=== PATIENT | male | born 1980 | race Caucasian/White ===

== ENCOUNTER 2022-09-28 13:32 | Outpatient (CLI) | payer OTHER, SELFPAY | END 2022-09-28 13:33 | disposition home or self-care (01) | PROVIDERS: PCP Family Medicine; Visit Provider Family Medicine | DX: Z00.00 Encounter for general adult medical examination without abnormal findings (principal); K21.9 Gastro-esophageal reflux disease without esophagitis; Z13.6 Encounter for screening for cardiovascular disorders | CPT/HCPCS: 80048; 80061; 85025 ==

== ENCOUNTER 2024-09-27 17:43 | Emergency (ER) | payer BC, SELFPAY ==
--- OUTSIDE RECORDS SUMMARY | 2024-09-27 17:45 | XMS_ITS | Clinical Summary ---
Author Organization [facility] [facility] [employer] [facility] Address [address] [place] [id number] Care Team Providers Care Logistics Operations Director Name Role Phone Ti Jimenez MD Primary Care Provider [phone] Allergies Active Allergy Reactions Criticality Noted Date Comments Tetracycline Hives 02/06/2016 Medications No known medications Active Problems No known active problems Immunizations Immunization Administration Dates Next Due COVID-19 VACCINE SPIKEVAX (M ODERNA 50MCG/0.5ML) 12YO+ PFS 12/02/2023 INFLUENZA, IIV3 PF (AGE >= 6 MO) 01/29/2015 Influenza A (H1N1), Inactivated 03/22/2009 Influenza Virus, Unspecified 11/28/2020,01/30/20 15 Influenza, CCIIV3 (Age >=6 MO) (Egg Free) 2023 Influenza, IIV3 (Age >=3 years) 12/28/2013,02/28 Influenza, IIV4 01/27/2017,12/29/2012,03/22/2009 Influenza, IIV4 (=>6mos) MDV 12/04/2019,11/29/19 19,01/02/2016 Influenza, Injectable, Mdck, Quadrivalent, W/preservative 11/24/2022,11/27/2021,11/28/2020 Tdap 12/23/2020,10/17/2015,08/20/2009 Family History Medical History Relation Name Comments Cancer-breast Maternal Grandmother Cancer-prostate Maternal Uncle 1 Stomach cancer Maternal Uncle 2 Cancer-breast Mother Skin cancer Mother Lung cancer Paternal Grandfather Cancer-colon No Family History Relation Name Status Comments Maternal Grandmother Maternal Uncle 1 Alive Maternal Uncle 2 Alive Mother Paternal Grandfather Social History Tobacco Use Types Packs/Day Years Used Date Smoking Tobacco: Never Smokeless Tobacco: Never Tobacco Cessation:Counseling Given: Yes Alcohol Use Standard Drinks/Week Comments Yes 0 (1 standard drink = 0.6 oz pur e alcohol) PHQ-2 Answer Date Recorded PHQ-2 TOTAL SCORE 0 04/21/2024 Social Connections Answer Date Recorded Do you often feel lonely or isolated from those around you? 0 04/20/2024 Financial Resource Strain Answer Date R ecorded Difficulty of Paying Living Expenses 3 04/20/2024 Difficulty of Paying Living Expenses Not on file 04/20/2024 Food Insecurity Answer Date Recorded Do you worry your food will run out before you are able to buy more? 1 04/20/2024 Transportation Needs Answer Date Record ed Does lack of transportation keep you from medica l appointments? 1 04/20/2024 Does lack of transportation keep you from work, meetings or getting things that you need? 1 04/20/2024 Housing Stability Answer Date Recorded What is your housing situation today? 1 04/20/2024 Utilities Answer Date Recorded Do you have trouble paying f or utilities (for example, heat, electricity, water, phone)? 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 [employer] Gender Identity Not on file Sexual Orientation Not on file Obstetrics History Last Filed Vital Signs Vital Sign Reading Time Taken Comments Blood Pressure 118/68 04/21/2024 2:27 PM [employer] Pulse 62 04/21/2024 2:27 PM [employer] Temperature 37.2 C (98.9 F) 04/18/2024 3:44 PM [employer] Respiratory Rate 16 04/18/2024 3:44 PM [employer]PER[employer] Oxygen Saturation 100% 04/21/2024 2:27 PM [employer] Inhaled Oxygen Concentration - - Weight 79.1 kg (174 lb 6.4 oz) 04/21/2024 2:27 P M [employer] Height 185 cm (6' 0.84) 04/21/2024 2:27 PM [employer] Body Mass Index 23.11 04/21/2024 2:27 PM [employer] Plan of Treatment Health Maintenance Due Date Last Done Comments Hepatitis B series for 19+ (1 of 3 - 19+ 3-dose series) 01/19/2000 Influenza Vaccine (#1) 2024 4, 11/24/2022, 11/27/2021, Additional history exists BMI (ht and wt on same day) for age 18+ 04/21/2025 04/21/2024, 05/27/2016, 02/06/2016 Depression screening for age 12+ 04/21/2025 04/21/2024 Lipids for age 35-44 04/21/2029 04/21/2024 Tetanus booster 12/23/2030 12/23/2020, 10/06, 08/20/2009 COVID-19 vaccine series Completed 12/02/19 24, 02/16/2023, 11/22/2021, Additional history exists HIV for age 15-65 Completed 04/21/2024 Hepatitis C screening for age 18-79 Completed 04/21/2024 Pneumococcal series for age 6-49 Aged Out No longer eligible based on patient's age to complete this topic Procedures Procedure Name Priority Date/Time Associated Diagnosis Comments ANTI HIV 1/2 Routine 04/21/2024 3:16 PM [employer] Screening for HIV (human immunodeficiency virus) ANTI HCV Routine 04/21/2024 3:16 PM [employer] Need for hepatitis C screening test LIPID PANEL W REFLEX MEASURED LDL Routine 04/21/2024 3:16 PM [employer] Screening for lipid disorders from Last 3 Months or Most Recently Relevant to Health Maintenance Results * (ABNORMAL) LIPID PANEL W REFLEX MEASURED LDL [[id number]] (04/21/2024 3:16 PM SUPERVISOR [employer]) CHOLESTEROL, TOTAL 143 <200 mg/dL [facility] HDL CHOLESTEROL 31(L) > OR = 40 mg/dL [facility] TRIGLYCERIDES 355(H) <150 mg/dL [facility] Comment: If a non-fasting specimen was collected, consider repeat triglyceride testing on a fasting specimen if clinically indicated. Aicha et al. J. of Clin. Lipidol. 2015;9:129-169. LDL-CHOLESTEROL 69 mg/dL (calc) [facility] Comment: Reference range: <100 Desirable range <100 mg/dL for primary prevention; <70 mg/dL for patients with CHD or diabetic patients with > or = 2 CHD risk factors. LDL-C is now calculated using the Stanley calculation, which is a validated novel method providing better accuracy than the Friedewald equation in the estimation of LDL-C. Bucky PEARCE et al. SWETHA. 2013;310(19): 6656-5301 (http://Jaco Solarsi.HRBoss/faq/SFW291) CHOL/HDLC RATIO 4.6 <5.0 (calc) [facility] NON HDL CHOLESTEROL 112 <130 mg/dL (calc) [facility] Comment: For patients with diabetes plus 1 major ASCVD risk factor, treating to a non-HDL-C goal of <100 mg/dL (LDL-C of <70 mg/dL) is considered a therapeutic option. Blood BLOOD SPECIMEN / Unknown 04/21/2024 3:16 PM [employer] 04/21/2024 3:16 PM SUPERVISOR [employer] Narrative [facility] - 04/22/2024 6:53 AM SUPERVISOR [employer]VERT[employer] FASTING:NO FASTING: NO us Ti Jimenez MD CHEMISTRY Final Resu lt [employer] [facility] [address] [place] [address], [facility] [address] * ANTI HCV (04/21/2024 3:16 PM SUPERVISOR [employer]) Pathologist [facility] HEPATITIS C ANTIBODY NON-REACTI VE NON-REACT CLAUDIA [facility] Comment: HCV antibody was non-reactive. There is no laboratory evidence of HCV infection. In most cases, no further action is required. However, if recent HCV exposure is suspected, a test for HCV RNA (test code 62850) is suggested. For additional information please refer to http://Jaco Solarsi.The Butler/faq/SGX70e1 (This link is being provided for informational/ educational purposes only.) Blood BLOOD SPECIMEN / Unknown 04/21/2024 3:16 PM [employer]PER[employer] 04/21/2024 3:16 PM [employer]PER[employer] Narrative [facility] - 04/22/2024 6:59 AM SUPER[employer] FASTING:NO FASTING: NO Ti Jimenez MD SEND OUTS Final Resu lt [employer] [facility] [address] [place] [address], [facility] [address] [place] [address] * ANTI HIV 1/2 [26222.0] (04/21/2024 3:16 PM SUPER[employer]) Pathologist [facility] HIV AG/AB, 4TH GEN NON-REACT CLAUDIA NON-REACT [facility]UD[facility] Comment: HIV-1 antigen and HIV-1/HIV-2 antibodies were not detected. There is no laboratory evidence of HIV infection. PLEASE NOTE: This information has been disclosed to you from records whose confidentiality may be protected by state law. If your state requires such protection, then the state law prohibits you from making any further disclosure of the information without the specific written consent of the person to whom it pertains, or as otherwise permitted by law. A general authorization for the release of medical or other information is NOT sufficient for this purpose. For additional information please refer to http://education.BOSS Metrics.NiftyThrifty/faq/YMD907 (This link is being provided for informational/ educational purposes only.) The performance of this assay has not been clinically validated in patients less than 2 years old. Blood BLOOD SPECIMEN / Unknown 04/21/2024 3:16 PM [employer] 04/21/2024 3:16 PM SUPER[employer] Narrative [facility] - 04/22/2024 6:59 AM SUPER[employer] FASTING:NO FASTING: NO Ti Jimenez MD SEND OUTS Final Resu lt [employer] [facility] [address] [place] [address], [facility] [address] [place] [address] from Last 3 Months or Most Recently Relevant to Health Maintenance Insurance [facility] Care Teams Logistics Operations Director Relationship Specialty Start Date End Date Ti Jimenez MD [address] [place] [address] PCP - General Family Practice 04/21/24
--- OUTSIDE RECORDS SUMMARY | 2024-09-27 17:45 | XMS_ITS | Clinical Summary ---
Author Organization [facility] Address [address] [facility] [place] [address] Care Team Providers Care Mold Runner Name Role Phone Unavailable Primary Care Provider Unavailabl e Allergies Active Allergy Reactions Criticality Noted Date Comments Tetracycline Hives Low 06/27/2004 Medications NO ACTIVE MEDICATIONSIndicat ions:Sore throat (viral) Active Active Problems Problem Noted Date Diagnosed Date CARDIOVASCULAR SCREENING; LDL GOAL LESS THAN 160 01/05/2010 Foot Joint Pain- rt 08/20/2009 Melanocytic nevus 08/20/2009 Overview (12/07/2011): (Problem list name updated by automated process. Provider to review and confirm.) Exercise-induced asthma 04/27/2005 Overview (12/06/2014): Problem list name updated by automated process. Provider to review Resolved Problems Problem Noted Date Diagnosed Date Resolved Date Cough 04/03/2010 12/23/2020 Immunizations Immunization Administration Dates Next Due Influenza (H1N1) 03/22/2009 Influenza (IIV3) PF 12/28/2013,02/29/2012 Influenza (prior to 2023) 01/29/2015 Influenza Vaccine >6 months,quad, PF 11/28/2020, 01/27/2017,12/29/2012 Influenza Vaccine, 6+MO IM ( QUADRIVALENT W/PRESERVATIVES) 12/04/2019,11/28/2018,01/02/2016 TDAP (Adacel,Boostrix) 12/23/2020 TDAP Vaccine (Adacel) 10/17/2015,08/20/2009 Family History Medical History Relation Comments Lipids Father Breast Cancer Mother Cancer Mother skin cancer Relation Status Comments Father Alive Maternal Grandfather Alive Maternal Grandmother Mother Alive Paternal Grandfather Paternal Grandmother Sister Alive Social History Tobacco Use Types Packs/Day Years Used Date Smoking Tobacco: Never Smokeless Tobacco: Never Tobacco Cessation:Counseling Given: No Alcohol Use Standard Drinks/Week Comments Yes 2 (1 standard drink = 0.6 oz pur e alcohol) couple drinks a week Adolescent Education Answer Date Record ed Getting School Help Needed Not on file 12/20 Sex and Gender Information Value Date Recorded Sex Assigned at Not on file 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
[2024-09-27 17:55] VITALS: BP 122/72; PULSE 52; RESP 18; TEMP 36.3; O2SAT 100; BMI 23.5
--- NOTE | 2024-09-27 18:29 | ED.GENADULT ---
HPI - General Adult General Date Seen: 09/27/24 Chief complaint: Extremity Pain/Injury, Lower Stated complaint: swollen knee, from urgent care Time Seen by Provider: 09/27/24 18:24 History of Present Illness HPI narrative: 44 yo M referred from urgent care to ER today for evaluation of knee pain and swelling. His knee is hot, painful, red and warm to the touch urgent care provider is concerned about either gout or septic arthritis. Notes from the urgent care have conflicting descriptions of what is needed is, I see both left knee and right knee in the urgent care notes. From patient and by clinical exam the patient is having right knee redness and warmth and swelling. He is generally healthy. No history of diabetes, cancer, immunosuppression. No regular meds. He is allergic to tetracycline. He generally does not do a lot of activities that require him to crawl around on his hands and knees but he had was recently renovating his home bathroom and was doing some demolition about 2 weeks ago with a lot of crawling on his hands and knees. He also notes that he has a chronic ?callus? on the front of his right knee on the infrapatellar space with a small scab that is been there for quite some time. He is not aware of any foreign body. No known injury. Beginning yesterday he started developing discomfort and redness and pain on the skin anterior to his patella. He notes that he is able flex and extend his knee but it hurts when he flexes at the on 90? because the tissue and skin and from the patella hurts. He has not had a fever. No other swollen joints. No rashes. No concern for gonorrhea or chlamydia. He was sent to the ER today because urgent care was concerned about potential septic arthritis. However he does not have any diffuse swelling or pain in the knee. The pain is only on the anterior patella. No known knee injury. Related Data Home Medications ?Medication ?Instructions ?Recorded ?Confirmed ibuprofen PO 09/27/24 09/27/24 Allergies Allergy/AdvReac Type Severity Reaction Status Date / Time tetracycline Allergy Unknown Unknown Verified 09/27/24 16:51 [facility] Medical History GERD (gastroesophageal reflux disease) ?K21.9 - Gastro-esophageal reflux disease without esophagitis (ICD-10) Family History Uncle Prostate cancer Mother Breast cancer Skin cancer Maternal Grandmother Brain cancer Social History Narrative: ,3 kids, Teacher Non-smoker, social EtOH What is your current living situation?: I presently have a place to live Problems where you live: no known problems In the past 12 months, utilities in danger of being shut off: no In past 12 months, lack of transportation kept you from medical appts, meetings, work, or getting things needed for daily living: no In the past 12 mos, have been you worried that your food would run out before you had money to buy more?: never true In the past 12 mos, the food you bought just didn't last and you didn't have money to buy more?: never true How often does anyone, including family, friends and others, physically hurt you: never How often does anyone, including family, friends and others, insult or talk down to you: never How often does anyone, including family, friends and others, threaten you with harm: never How often does anyone, including family, friends and others, scream or curse at you: never Exam Narrative: Exam Narrative: Constitutional: Appears well-developed and well-nourished. Active. Non-toxic appearing. Polite. HENT: Head: Atraumatic. No signs of injury. Nose: No nasal discharge. Mouth/Throat: Mucous membranes are moist. No trismus. Eyes: Conjunctivae normal and EOM are normal. Pupils are equal, round, and reactive to light. Right eye exhibits no discharge. Left eye exhibits no discharge. No icterus. Neck: Normal range of motion. Neck supple. No adenopathy. No stridor. Cardiovascular: Normal rate and regular rhythm. Normal PT pulses. Normal distal cap refill Pulmonary/Chest: Effort normal. No stridor. No respiratory distress. Musculoskeletal: Normal except for his right knee- Normal range of motion. No edema. No tenderness. No deformity. Right lower extremity: No deformity. Hip nontender. Quadriceps, hamstring, femur nontender. Knee: There is a localized area of erythema and warmth on the soft tissue anterior to the patella. His roughly 4 x 6 cm in size but the edges of the erythema are somewhat indeterminate. The tissue is swollen and indurated and tender to touch but there is no palpable fluctuance. No crepitus. There is a small 1 x 2 mm scab on the skin of the patient's right proximal tibia just superior to the tibial tuberosity. No foreign body. No purulent drainage from that scab. The I do not detect any palpable or visible knee joint effusion. He has nearly full range of motion the knee from full extension to flexion just beyond 90?. No ligamentous laxity or clear evidence for ligamentous injury. Neurological: Alert. Normal strength. No cranial nerve deficit or sensory deficit. Coordination normal. GCS eye subscore is 4. GCS verbal subscore is 5. GCS motor subscore is 6. Skin: Skin is warm. No rash noted. Const: Vital Signs, click to edit/add: Vital Signs - 24 hr 09/27/24 17:55 Temperature 97.4 F L Pulse Rate [Pulse Oximeter] 52 L Respiratory Rate 18 Blood Pressure [Ri ght Upper Arm] 122/72 Pulse Oximetry 100 Oxygen Delivery Me thod Room Air Course Vital Signs Vital signs: Initial Vital Signs Temperature 97.4 F L 09/27/24 17:55 Temperature Source Temporal Artery Scan 09/27/24 17:55 Pulse Rate 52 L 09/27/24 17:55 Pulse Rhythm Regular 09/27/24 17:55 Respiratory Rate 18 09/27/24 17:55 Blood Pressure 122/72 09/27/24 17:55 Blood Pressure Mean 88 09/27/24 17:55 Blood Pressure Position Sitting 09/27/24 17:55 Pulse Oximetry 100 09/27/24 17:55 Oxygen Delivery Method Room Air 09/27/24 17:55 Vital Signs Temperature 97.4 F L 09/27/24 17:55 Pulse Rate 52 L 09/27/24 17:55 Respiratory Rate 18 09/27/24 17:55 Blood Pressure 122/72 09/27/24 17:55 Pulse Oximetry 100 09/27/24 17:55 Oxygen Delivery Method Room Air 09/27/24 17:55 Temperature 97.4 F L 09/27/24 17:55 Pulse Rate 52 L 09/27/24 17:55 Respiratory Rate 18 09/27/24 17:55 Blood Pressure 122/72 09/27/24 17:55 Pulse Oximetry 100 09/27/24 17:55 Oxygen Delivery Method Room Air 09/27/24 17:55 Medical Decision Making MDM Narrative Medical decision making narrative: Very pleasant generally healthy 44-year-old male referred from urgent care to ER today with concern for right knee pain with redness and swelling. Urgent Care was concerned about septic arthritis. On my exam here in the ER the patient appears appears to have a prepatellar bursitis. It is clear that the redness and swelling and mild discomfort are clearly localized to the prepatellar soft tissue and do not affect the entire knee joint. There is no palpable or detectable knee joint effusion on my exam. He has no recent trauma to raise concern for knee fracture. He did do some demolition to his home bathroom about 10 days or 2 weeks ago and was crawling on his hands and knees. He does have a small scab anterior knee which he actually says it has been present even prior to renovating his bathroom. . I suspect is probably that activity that triggered this prepatellar bursitis. At this point I do not think he needs labs, admission for IV antibiotics. I do not think he has septic arthritis and I do not think a diagnostic knee arthrocentesis is indicated, or even would be feasible since I do not think there is any significant amount of synovial fluid in the knee joint. Will treat the patient with a course of cephalexin for prepatellar bursitis. Patient is agreeable to this plan of care. We discussed the differential diagnosis in question, in detail. Patient understands that he needs to return to the ER right away if he does have any new worsening knee pain, spreading redness or swelling, fever chills, or any concerns. We discussed that it typically will take 36-48 hours for there to be visible improvement in the redness 1 starting on antibiotics. If he is not dramatically improved by Wednesday he should return to the ER to be rechecked. Questions answered. Instymeds prescription for cephalexin 500 q.i.d. for 7 days. Discharge Plan Discharge Prescriptions: No Action ibuprofen PO Follow Up/Referrals: Jose Francisco Kinney MD [Primary Care Provider, Family Practice]
== END 2024-09-27 19:09 | disposition home or self-care (01) ==
PROVIDERS: Emergency Provider Emergency Medicine; PCP Family Medicine
DX: M70.41 Prepatellar bursitis, right knee (principal)
CPT/HCPCS: 99282; 99283